=== PATIENT | female | born 1980 | race Caucasian/White ===

== ENCOUNTER 2025-03-08 03:38 | Emergency (ER) | payer BC ==
[2025-03-08 04:09] LABS: BASOPHILS ABSOLUTE AUTO 0.03 K/uL (0.00-0.10); BASOPHILS PERCENT AUTO 0.3 % (0.1-1.3); EOSINOPHILS ABSOLUTE AUTO 0.07 K/uL (0.00-0.40); EOSINOPHILS PERCENT AUTO 0.6 % (0.0-5.4); HEMOGLOBIN 14.4 g/dL (11.2-15.5); IMMATURE GRAN ABSOLUTE AUTO 0.06 K/uL (0.00-0.23); IMMATURE GRAN PERCENT AUTO 0.5 % (0.0-0.7); LYMPHOCYTES ABSOLUTE AUTO 1.86 K/uL (0.8-3.3); LYMPHOCYTES PERCENT AUTO 16.3 % (11.4-47.7); MEAN CORPUSCULAR HEMOGLOBIN 29.9 pg (31.6-35.5); MEAN CORPUSCULAR HGB CONC 32.7 g/dL (31.6-35.5); MEAN CORPUSCULAR VOLUME 91.5 fL (81.4-99.0); MONOCYTES ABSOLUTE AUTO 0.55 K/uL (0.20-0.90); MONOCYTES PERCENT AUTO 4.8 % (3.3-12.6); NEUTROPHILS ABSOLUTE AUTO 8.87 K/uL (1.0-7.6); NEUTROPHILS PERCENT AUTO 77.5 % (40.0-78.1); PLATELET COUNT,PLT 284 K/uL (130-375); RED BLOOD CELL COUNT 4.81 M/uL (3.77-5.24); WHITE BLOOD CELL COUNT,WBC 11.4 K/uL (3.2-11.0)
[2025-03-08] MEDS: fentaNYL 50 MCG/ML SDV IVPUSH ONE (04:20)
[2025-03-08] MEDS: Ondansetron 4 MG/2 ML SDV IVPUSH ONE (04:20)
[2025-03-08 04:31] LABS: A/G RATIO 1.2 (1.2-2.2); ALANINE AMINOTRANSFERASE,ALT 22 U/L (12-78); ALBUMIN 3.8 g/dL (3.4-5.0); ALKALINE PHOSPHATASE 106 U/L (46-116); ASPARTATE AMNIOTRANSFERASE,AST 14 U/L (15-37); BILIRUBIN TOTAL 0.2 mg/dL (0.2-1.0); BLOOD UREA NITROGEN,BUN 15 mg/dL (7-18); CALCIUM 9.4 mg/dL (8.5-10.1); CARBON DIOXIDE,CO2 25 mmol/L (21-32); CHLORIDE,CL 102 mmol/L (100-108); CREATININE 0.8 mg/dL (0.6-1.0); EST CRCL DRUG DOSING (CG) 80.75 mL/min; ESTIMATED GFR 93 mL/min (>60); GLUCOSE RANDOM 139 mg/dL (74-106); POTASSIUM,K 4.2 mmol/L (3.6-5.2); PROTEIN TOTAL,TP 7.1 g/dL (6.4-8.2); SODIUM,NA 137 mmol/L (140-148)
[2025-03-08 04:32] LABS: ANION GAP 14.2 mmol/L (5.0-14.0); C-REACTIVE PROTEIN < 0.50 mg/dL (<0.50)
[2025-03-08] MEDS: Iopamidol 612 MG/ML 100 ML Bottle IV SCH (04:57)
[2025-03-08] MEDS: Sodium Chloride 0.9% 10 ML Syringe FLUSH PRN (04:57)
[2025-03-08] MEDS: Sodium Chloride 0.9% 100 ML IV SCH (04:57)
[2025-03-08] MEDS ORDERED: Naloxone 0.4 MG/ML SDV IVPUSH PRN (05:51)
[2025-03-08] MEDS: HYDROmorphone 0.5 MG/0.5 ML Syringe IVPUSH ONE (05:58)
== END 2025-03-08 07:44 | disposition home or self-care (01) ==
LOC: JP.ED 03:38
DX: K80.20 Calculus of gallbladder without cholecystitis without obstruction (principal); Z79.810 Long term (current) use of selective estrogen receptor modulators (SERMs)
CPT/HCPCS: 36415; 74177; 76705; 80053; 83605; 83690; 84703; 85025; 86140; 96374; 96375; 99284; 99284-25; J1171; J2405; J3010; Q9967